=== PATIENT | female | born 1995 | race Caucasian/White ===

== ENCOUNTER 2017-09-13 21:30 | Emergency (ER) | payer OTHER, BC ==
[2017-09-13 21:34] VITALS: BP 144/83
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
[2017-09-13] MEDS ORDERED: IBUPROFEN 800 MG TAB PO ONE (22:01)
== END 2017-09-13 23:05 | disposition home or self-care (01) ==
DX: S50.12XA Contusion of left forearm, initial encounter (principal); V49.40XA Driver injured in collision with unspecified motor vehicles in traffic accident, initial encounter; Y92.410 Unspecified street and highway as the place of occurrence of the external cause; Y99.8 Other external cause status; Y93.89 Activity, other specified